=== PATIENT | male | born 1975 | race Caucasian/White ===

== ENCOUNTER 2019-03-14 21:46 | Emergency (ER) | payer OTHER ==
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
[2019-03-14 22:30] LABS: URINE SOURCE CLEAN C
[2019-03-14 22:33] LABS: % BASOPHILS 0.6 % (0.0-2.0); % LYMPHOCYTES 28.9 % (20.0-50.0); % MONOCYTES 10.7 % (2.0-10.0); % NEUTROPHILS 54.8 % (40.0-80.0); EOSINOPHILE ABSOLUTE 0.4 Th/cmm (0.1-0.4); HEMATOCRIT 41.1 % (41.0-60); HEMOGLOBIN 13.9 gm/dL (12-16); LYMPHOCYTE ABSOLUTE 2.3 Th/cmm (1.5-3.0); MEAN CELL VOLUME 89.3 fl (80-99); MEAN CORPUSCULAR HEMOGLOBIN 30.2 pg (26.0-30.0); MEAN CORPUSCULAR HGB CONC 33.8 pg (28.0-36.0); MONOCYTE ABSOLUTE 0.9 Th/cmm (0.3-1.0); NEUTROPHILE ABSOLUTE 4.4 Th/cmm (1.8-8.0); PLATELET COUNT 307 Th/cmm (150-400); RED BLOOD COUNT 4.61 Mil/cmm (4.30-5.70)
[2019-03-14 22:48] LABS: ALB/GLOB RATIO 1.4 (1.0-1.8); ALBUMIN 4.3 gm/dL (4.2-5.5); ALKALINE PHOSPHATASE 52 U/L (34-104); ANION GAP 11.6 (7.0-16.0); BILIRUBIN,TOTAL 0.9 mg/dL (0.3-1.0); BUN - UREA NITROGEN 17 mg/dL (7-25); CALCIUM SERUM 9.7 mg/dL (8.6-10.3); CARBON DIOXIDE 27.2 mEq/L (21.0-31.0); CHLORIDE 104 mEq/L (98-107); CREATININE - SERUM 0.9 mg/dL (0.7-1.3); GFR AFRICAN-AMERICAN > 60.0 ml/min (>90); GFR NON AFRICAN-AMERICAN > 60.0 ml/min; GLUCOSE 121 mg/dL (70-105); POTASSIUM SERUM 3.8 mEq/L (3.5-5.1); SGOT 15 U/L (13-39); SGPT/ALT 21 U/L (7-52); SODIUM SERUM 139 mEq/L (136-145); TOTAL PROTEIN,SERUM 7.3 gm/dL (6.0-8.3)
[2019-03-14 23:04] LABS: URINE BILIRUBIN NEGATIVE (NEGATIVE); URINE BLOOD TRACE (NEGATIVE); URINE GLUCOSE (UA) NEGATIVE (NEGATIVE); URINE KETONE NEGATIVE (NEGATIVE); URINE LEUKOCYTE ESTERASE NEGATIVE (NEGATIVE); URINE MICROSCOPIC INDICATED? YES; URINE NITRATE NEGATIVE (NEGATIVE); URINE PROTEIN NEGATIVE (NEGATIVE); URINE UROBILINOGEN 0.2 E.U./dL (0.2 - 1.0)
[2019-03-14 23:07] LABS: URINE CLARITY CLEAR (CLEAR); URINE COLOR YELLOW
[2019-03-14 23:13] LABS: URINE BACTERIA NONE SEEN /hpf (NONE SEEN); URINE EPITHELIAL CELLS NONE SEEN /lpf (FEW); URINE RBC 0-2 /hpf (0-5); URINE WBC NONE SEEN /hpf (0-5)
--- NOTE | 2019-03-15 09:27 | Diagnostic Imaging Report ---
CT scan of the abdomen and pelvis without intravenous contrast History: Right upper quadrant pain Total DLP equals 743 CTDI equals 14.6 Axial sections were obtained from the xiphoid process down to the pubic symphysis. The liver demonstrates a normal size and contour. No focal lesions are seen. The spleen appears normal. No abnormalities are seen in the region of the pancreas. The kidneys appear normal bilaterally. The exam of the pelvis demonstrates preservation of normal fat planes. No abnormal soft tissue masses. No abnormal fluid collections. Impression: Negative examination
--- NOTE | 2019-03-15 09:29 | Diagnostic Imaging Report ---
CT scan of the chest History: Right chest pain Total DLP equals 334 CTDI equals 10.0 Axial sections were obtained from a level above the clavicles down to a level below the diaphragm. Exam the mediastinum demonstrates preservation of normal fat planes about the major vascular landmarks. No abnormal masses. Specifically no lymphadenopathy. No abnormal focal pulmonary parenchymal masses or nodules are seen. The hilar regions appear normal. No pleural effusions are seen. Impression: No acute abnormalities
--- NOTE | 2019-03-15 09:30 | Diagnostic Imaging Report ---
Exam: Right rib cage HISTORY: Trauma Findings: Multiple views of the right rib cage demonstrate no evidence of fracture dislocation or pneumothorax. IMPRESSION normal examination right rib cage.
== END 2019-03-14 23:50 | disposition home or self-care (01) ==
LOC: ER 21:46
DX: S20.211A Contusion of right front wall of thorax, initial encounter (principal); W01.198A Fall on same level from slipping, tripping and stumbling with subsequent striking against other object, initial encounter; Y93.89 Activity, other specified; Y92.89 Other specified places as the place of occurrence of the external cause; Y99.8 Other external cause status
CPT/HCPCS: 99284; 96372; 93005; 71101; 71250; 74176; 36415; 85025; 81001; 80053; J1885